=== PATIENT | female | born 1985 | race Two or more races ===

== ENCOUNTER 2021-06-03 05:43 | Emergency (ER) | payer BC ==
[~2021-06-03] VITALS: Ht 160 cm; Wt 59.0 kg
[2021-06-03] MEDS ORDERED: MUPIROCIN15 GM TOP (08:34)
[2021-06-03] MEDS ORDERED: BENADRYL25 MG PO (08:34)
== END 2021-06-03 09:53 | disposition home or self-care (01) ==
LOC: ER 05:43
DX: S40.272A Other superficial bite of left shoulder, initial encounter (principal); L01.09 Other impetigo; W57.XXXA Bitten or stung by nonvenomous insect and other nonvenomous arthropods, initial encounter; Y93.89 Activity, other specified; Y92.89 Other specified places as the place of occurrence of the external cause; Y99.8 Other external cause status